=== PATIENT | female | born 1945 | race Two or more races ===

== ENCOUNTER 2021-05-23 09:15 | Inpatient (IN) | payer OTHER ==
[~2021-05-23] VITALS: Ht 160 cm; Wt 64.9 kg
[2021-05-23] MEDS ORDERED: VASOTEC20 M1 PO (11:17)
[2021-05-23] MEDS ORDERED: TRADJENTA5 MG PO (11:17)
[2021-05-23] MEDS ORDERED: GABAPENTIN400 MG PO (11:17)
[2021-05-23] MEDS ORDERED: NORVASC10 MG PO (11:19)
[2021-05-23] MEDS ORDERED: TRAMADOL HCL50 MG PO (11:19)
[2021-05-23] MEDS ORDERED: ADULT LOW DOSE81 M1 PO (11:19)
[2021-05-25] MEDS ORDERED: ALENDRONATE SOD70 MG (09:31)
[2021-05-25] MEDS ORDERED: GABAPENTIN800 M1 (09:31)
[2021-05-25] MEDS ORDERED: NORTRIPTYLINE H10 MG (09:31)
[2021-05-25] MEDS ORDERED: FISH OIL 1,0001 EAC4 (09:31)
[2021-05-25] MEDS ORDERED: LORATADINE10 MG (09:31)
[2021-05-25] MEDS ORDERED: VENTOLIN HFA18 GM (09:31)
[2021-05-25] MEDS ORDERED: FAMOTIDINE20 MG (09:31)
[2021-05-25] MEDS ORDERED: PREGABALIN75 MG (09:32)
[2021-05-25] MEDS ORDERED: CIPROFLOXACIN500 MG (09:32)
[2021-05-25] MEDS ORDERED: HYDRALAZINE HCL25 MG (09:32)
[2021-05-25] MEDS ORDERED: TRAZODONE HCL100 MG (09:32)
[2021-05-25] MEDS ORDERED: PANTOPRAZOLE SO40 MG (09:32)
[2021-05-25] MEDS ORDERED: PIOGLITAZONE HC15 MG (09:32)
[2021-05-28] MEDS ORDERED: PERCOCET 5-3251 EACH PO (09:17)
== END 2021-05-28 13:08 | disposition home or self-care (01) | DRG 331 ==
LOC: SURH 05-25 07:00 → O/R 05-25 08:40 → SURH 05-25 09:15
PROVIDERS: ADMIT Surgery; ATTEND Surgery
PROC: 0DBP4ZZ Excision of Rectum, Percutaneous Endoscopic Approach (ICD-10-PCS; 2021-05-25)
PROC: 0DTJ4ZZ Resection of Appendix, Percutaneous Endoscopic Approach (ICD-10-PCS; 2021-05-25)
PROC: 0DJD8ZZ Inspection of Lower Intestinal Tract, Via Natural or Artificial Opening Endoscopic (ICD-10-PCS; 2021-05-25)
PROC: 0DTN4ZZ Resection of Sigmoid Colon, Percutaneous Endoscopic Approach (ICD-10-PCS; principal; 2021-05-25 07:00)
DX: K57.32 Diverticulitis of large intestine without perforation or abscess without bleeding (principal); K59.09 Other constipation; Z20.822 Contact with and (suspected) exposure to COVID-19; N73.6 Female pelvic peritoneal adhesions (postinfective); N99.4 Postprocedural pelvic peritoneal adhesions; I11.9 Hypertensive heart disease without heart failure; E11.9 Type 2 diabetes mellitus without complications